=== PATIENT | female | born 1990 | race African-American/Black ===

== ENCOUNTER 2016-11-02 19:41 | Emergency (ER) | payer MEDICAID ==
[~2016-11-02] VITALS: Ht 152.4 cm; Wt 59.5 kg
[2016-11-02 19:55] VITALS: Ht 152.4 cm; Wt 59.5 kg
--- NOTE | 2016-11-02 20:02 | EN ---
Date/Time of Note Date/Time of Note DATE: 11/02/16 TIME: 20:02 ER Progress Note 26-year-old female presents to emergency department for complaints of cough and wheezing for the last 2 days, using inhaler, continues to have the wheezing. Patient has been having dry cough, does not cough up any phlegm or blood. Patient has episodes of wheezing. Patient denies any fever or chills. Patient has been using her inhalers have further symptoms. Patient was evaluated, noted left upper lung lobe wheezing, active wheezing at this time. Patient is breathing treatment, and a further evaluation. Patient will be waiting for ER2 bed for breathing treatment. BRIEN MALLOY NP Nov 02, 2016 20:02
[2016-11-02] MEDS ORDERED: ALBUTEROL/IPRATROPIUM (NEB) 3 ML AMP HHN STA (20:26)
[2016-11-02] MEDS ORDERED: DEXAMETHASONE 10 MG/ML 1 ML INJ IM ONE (20:30)
--- NOTE | 2016-11-02 20:32 | ERD ---
ER Documentation Chief Complaint Date/Time DATE: 11/02/16 TIME: 20:28 Chief Complaint HPI This patient is a 26-year-old female with a history of asthma presenting to the emergency department for cough and wheezing which is been ongoing intermittently for the past 3 days. The patient states that today she has used her albuterol inhaler multiple times with no relief of her wheezing. Additionally the patient reports congestion which is been ongoing now for the past 2 days. The patient denies any urinary symptoms, fevers, chills, nausea, vomiting, diarrhea, chest pain, or other symptoms at this time. There are no other alleviating or exacerbating factors at this time. ROS All systems reviewed and are negative except as per history of present illness. Medications Home Meds Active Scripts Fluticasone Propionate (Flonase Allergy Relief) 9.9 Ml [place].susp, 1 SPRAY NASAL DAILY, #1 BOTTLE TO EACH NOSTRIL Prov:JOSS STAFFORD PA-C 11/02/16 Prednisone* (Prednisone*) 20 Mg Tab, 40 MG PO DAILY for 5 Days, #10 TAB Prov:JOSS STAFFORD PA-C 11/02/16 Beclomethasone Dip* (Qvar 40*) 7.3 Gm Inha, 1 PUFF INH BID, #1 INHALER Prov:JOSS STAFFORD PA-C 11/02/16 Allergies Allergies: Coded Allergies: No Known Allergy (Unverified , 11/02/16) PMhx/Soc Medical and Surgical Hx: pt denies Surgical Hx Hx Respiratory Disorders: Yes (ASTHMA) Hx Alcohol Use: No Hx Substance Use: No Hx Tobacco Use: Yes (MARIJUANA) Smoking Status: Current every day smoker FmHx Noncontributory for chief complaint Physical Exam Vitals Vital Signs Date Time Temp Pulse Resp B/P Pulse Ox O2 Delivery O2 Flow Rate FiO2 11/02/16 21:30 98.0 94 20 125/73 98 Room Air 11/02/16 20:41 93 18 97 21 11/02/16 19:55 98.6 89 22 117/78 99 Physical Exam INITIAL VITAL SIGNS: Reviewed by me GENERAL: The patient is well developed and appropriate for usual state of health in no apparent distress HEENT: Pupils equal, round, and reactive to light. EOMI. There is no scleral icterus. NECK: C-spine is soft and supple, there is no meningismus. There is no cervical lymphadenopathy. LUNGS: There is inspiratory and expiratory wheezing to all lung araujo. There are rhonchi noted in all lung araujo. There is shallow inspiratory effort. HEART: Regular rate and rhythm, no murmurs, clicks, rubs or gallops. ABDOMEN: Soft, non-tender, non-distended. There are bowel sounds in all four quadrants. No rebound or guarding. EXTREMITIES: There is no peripheral cyanosis or edema. No focal swelling or erythema. NEUROLOGICAL: The patient moves all four extremities with 5/5 strength. Normal gait. Alert and oriented SKIN: There is no apparent rash or petechiae. HEME/LYMPHATIC: There is no evidence of excessive bruising or lymphedema. PSYCHIATRIC: The patient does not appear anxious or depressed. Results 24 hrs Current Medications Medications (Trade) Dose Ordered Sig/Erickson Route PRN Reason Start Time Stop Time Status Last Admin Dose Admin Dexamethasone (Decadron) 10 mg ONCE ONCE IM 11/02/16 20:30 11/02/16 20:31 DC 11/02/16 20:49 Albuterol/ Ipratropium (Duoneb) 3 ml ONCE STAT HHN 11/02/16 20:26 11/02/16 20:29 DC 11/02/16 20:37 Procedures/MDM Chest X-ray 1V, Interpreted by radiologist. 1. No radiographic evidence for acute cardiopulmonary disease. 2. Mild hyperinflation and correlate with reactive airway disease Medications: The patient was given a nebulizer treatment with albuterol and Atrovent. The patient was given injection of 10 mg of Decadron. MDM: 26-year-old female presenting to the emergency department for asthma exacerbation for the past 2 days. The patient has been using her albuterol inhaler multiple times throughout the day today. On physical examination there are no signs of retractions or respiratory distress however there are inspiratory wheezes to all lung araujo. I have ordered a chest x-ray looking for any signs of hyperinflation, bronchitis, pneumonia or other cardiopulmonary abnormalities. I have ordered a medication nebulizer with albuterol and Atrovent as well as an injection of Decadron for relief of the patient's symptoms. After treatment in the department the patient was feeling improved. Review of the chest x-ray shows no signs of bronchitis or pneumonia however there was mild hyperinflation. At this time, the patient's primary diagnosis is asthma exacerbation and secondary diagnosis is upper respiratory infection. There are no clinical or radiological signs of pulmonary embolism, bronchitis, pneumonia or other acute emergencies. The patient is stable for discharge and treatment as an outpatient. She will be given prescriptions for symptom relief. She is in agreement with the plan. All questions and concerns of been addressed at this time. She should follow-up with her primary care doctor within 2-5 days. Departure Diagnosis: Primary Impression: Asthma exacerbation Additional Impression: Upper respiratory infection Condition: Stable Patient Instructions: Asthma Additional Instructions: Follow-up with your primary care physician within 1 week. Return to the emergency department immediately should you have any new or worsening symptoms, uncontrolled fevers, or other unexplained symptoms. Take all medications as directed. JOSS STAFFORD PA-C Nov 02, 2016 20:32
--- NOTE | 2016-11-02 20:52 | RADRPT ---
PROCEDURE: XR Chest. CLINICAL INDICATION: Wheezing TECHNIQUE: AP Portable chest. COMPARISON: None available FINDINGS: The soft tissues and bones are normal. No focal infiltrates, masses, or effusions are noted. Mild hyperinflation is present and correlate with reactive airway disease. The mediastinum and heart are normal. No pneumothorax is present. IMPRESSION: 1. No radiographic evidence for acute cardiopulmonary disease. 2. Mild hyperinflation and correlate with reactive airway disease RPTAT: HDC .Florida Doss MD, Date Time Electronically viewed and signed by .Florida Doss MD, MD on 11/02/2016 20:52 .C/
[2016-11-02] MEDS ORDERED: PRED20TA PO (21:13)
[2016-11-02] MEDS ORDERED: BECL8.7A INH (21:13)
[2016-11-02] MEDS ORDERED: FLUT9.9S NASAL (21:14)
[2016-11-02 21:30] VITALS: BP 125/73; PULSE 94; RESP 20; TEMP 98
== END 2016-11-02 21:30 | disposition home or self-care (01) ==
LOC: FTE 19:41
DX: J45.901 Unspecified asthma with (acute) exacerbation (principal); J06.9 Acute upper respiratory infection, unspecified; F17.210 Nicotine dependence, cigarettes, uncomplicated
CPT/HCPCS: 71010; 94664; 96372; J1100; Z7502; Z7610

== ENCOUNTER 2016-11-08 13:29 | Emergency (ER) | payer MEDICAID ==
[~2016-11-08] VITALS: Wt 60.0 kg
[~2016-11-08 13:29] MED LIST: BECL8.7A INH; FLUT9.9S NASAL; PRED20TA PO
--- NOTE | 2016-11-08 14:57 | EN ---
Date/Time of Note Date/Time of Note DATE: 11/08/16 TIME: 14:57 ER Progress Note Patient was evaluated RME on examination patient was wheezing and would like a breathing treatment, patient will be sent to ER to for breathing treatment and further management ARLEN RIVAS PA-C Nov 08, 2016 14:57
[2016-11-08] MEDS ORDERED: IPRATROPIUM (NEB) 0.5 MG/2.5 ML AMP NEB STA (15:27)
[2016-11-08] MEDS ORDERED: ALBUTEROL 0.5% (NEB) 2.5 MG/0.5 ML AMP NEB STA (15:27)
[2016-11-08] MEDS ORDERED: IPRA3AMP INHALATION (15:57)
[2016-11-08] MEDS ORDERED: [UNRECOGNIZED DRUG - CODE] MC (15:57)
--- NOTE | 2016-11-08 17:10 | ERD ---
ER Documentation Chief Complaint Date/Time DATE: 11/08/16 TIME: 17:08 Chief Complaint COUGH AND CONGESTION FOR THE PAST FEW MONTHS. NO DISTRESS. HPI This is a 26-year-old female presenting to the emergency department complaining of cough, congestion and wheezing for the past few months. Patient states that she has been seen here last week and got a breathing treatment and given 5 days of prednisone. Patient states that she still has some wheezing. She denies any chest pain however she does states that she feels her breathing a little tight. She denies any fevers. Patient states that she is unable to get the inhaler due to ROS All systems reviewed and are negative except as per history of present illness. Medications Home Meds Active Scripts Ipratropium-Albuterol (Ipratropium-Albuterol) 0.5-3 Mg/3 Ml [place].neb, 3 ML INHALATION Q6, #30 VIAL Prov:ARLEN RIVAS PA-C 11/08/16 Nebulizer (ERAPID NEBULIZER) 1 Each Each, 1 EACH MC, #1 Prov:ARLEN RIVAS PA-C 11/08/16 Fluticasone Propionate (Flonase Allergy Relief) 9.9 Ml [place].susp, 1 SPRAY NASAL DAILY, #1 BOTTLE TO EACH NOSTRIL Prov:JOSS STAFFORD PA-C 11/02/16 Prednisone* (Prednisone*) 20 Mg Tab, 40 MG PO DAILY for 5 Days, #10 TAB Prov:JOSS STAFFORD PA-C 11/02/16 Beclomethasone Dip* (Qvar 40*) 7.3 Gm Inha, 1 PUFF INH BID, #1 INHALER Prov:JOSS STAFFORD PA-C 11/02/16 Allergies Allergies: Coded Allergies: No Known Allergy (Unverified , 11/02/16) PMhx/Soc Hx Respiratory Disorders: Yes (ASTHMA) Hx Cardiac Disorders: No Hx Psychiatric Problems: No Hx Miscellaneous Medical Probl: No Hx Alcohol Use: No Hx Substance Use: No Hx Tobacco Use: Yes (MARIJUANA) Smoking Status: Current every day smoker Physical Exam Vitals Vital Signs Date Time Temp Pulse Resp B/P Pulse Ox O2 Delivery O2 Flow Rate FiO2 11/08/16 15:42 88 22 99 21 11/08/16 13:37 98.1 82 22 140/82 99 Physical Exam GENERAL: WD/WN, in no apparent distress, non-toxic appearing HENT: NC/AT, bilateral TM has good cone of light EYES: Conjunctiva normal NECK: Supple PULM: Inspiratory and expiratory wheezing. No rales, crackles, or rhonchi heard. No tripod position, normal labored breathing, no stridor, no evidence of using accessory muscles. CV: Good capillary refill, good S1 and S2, no murmurs appreciated GI: Non-distended, no guarding BACK: No masses. EXT: No clubbing, cyanosis, or edema. NEURO: Moves on all fours SKIN: intact, no cyanosis. PSYCH: Normal mood Results 24 hrs Current Medications Medications (Trade) Dose Ordered Sig/Ercikson Route PRN Reason Start Time Stop Time Status Last Admin Dose Admin Albuterol (Proventil 0.5% (Neb)) 10 mg ONCE STAT NEB 11/08/16 15:27 11/08/16 15:28 DC 11/08/16 15:41 Ipratropium [place] (Atrovent 0.02% (Neb)) 1.5 mg ONCE STAT NEB 11/08/16 15:27 11/08/16 15:28 DC 11/08/16 15:41 Procedures/MDM This is a 26-year-old female presented to the emergency room with symptoms most consistent with a viral upper respiratory infection with reactive airway disease. Patient has been seen here last week and a chest x-ray done, chest x- ray was unremarkable for any infiltrates or pneumothorax. Patient was given a prescription for an inhaler however patient states that she was unable to get the inhaler yet. On examination patient was breathing well on room air with a pulse ox of 99%. She did have evidence of wheezing on examination. RT was consulted and patient was given 10 mg albuterol and 1 mg of Atrovent, I have reassessed patient and she significantly improved. Patient is suitable to follow-up with her primary care physician for further evaluation management. I will low suspicion for pneumonia, status asthmaticus, pneumonia, inhaled foreign body, or other life threatening pulmonary emergencies due to physical examination. Hemodynamically stable. Patient was saturating well on room air and shortness of breath improved. Prescription for nebulizer, Atrovent and albuterol was given , discussed to have a close follow-up with a primary care physician, discussed to return to the ED if not improving as expected or if condition worsens. Patient understood and agreed with this plan. Departure Diagnosis: Primary Impression: Reactive airway disease Asthma severity: unspecified severity Asthma complication type: uncomplicated Qualified Code: J45.909 - Reactive airway disease, unspecified asthma severity, uncomplicated Additional Impression: Viral URI Condition: Stable Patient Instructions: Asthma Medications, Uri, Viral W/ Wheezing (Adult) Referrals: NO PRIMARY,CARE PHYSICIAN (PCP) COMMUNITY CLINICS YOU HAVE RECEIVED A MEDICAL SCREENING EXAM AND THE RESULTS INDICATE THAT YOU DO NOT HAVE A CONDITION THAT REQUIRES URGENT TREATMENT IN THE EMERGENCY DEPARTMENT. FURTHER EVALUATION AND TREATMENT OF YOUR CONDITION CAN WAIT UNTIL YOU ARE SEEN IN YOUR DOCTORS OFFICE WITHIN THE NEXT 1-2 DAYS. IT IS YOUR RESPONSIBILITY TO MAKE AN APPOINTMENT FOR FOLOW-UP CARE. IF YOU HAVE A PRIMARY DOCTOR --you should call your primary doctor and schedule an appointment IF YOU DO NOT HAVE A PRIMARY DOCTOR YOU CAN CALL OUR PHYSICIAN REFERRAL HOTLINE AT IF YOU CAN NOT AFFORD TO SEE A PHYSICIAN YOU CAN CHOSE FROM THE FOLLOWING [facility] [address] [facility]. [facility] [address] [facility] [facility] [address] [facility] [facility] [address] [facility]. [facility] [address] [facility] [facility]. [address] Additional Instructions: FOLLOW UP WITH YOUR PRIMARY CARE PHYSICIAN TOMORROW.Return to this facility if you are not improving as expected. Take all medicines as directed. Return to this facility if you are not improving as expected. ARLEN RIVAS PA-C Nov 08, 2016 17:10
[2016-11-08] MEDS ORDERED: ONDA4TAB14 PO (17:14)
[2016-11-08 17:18] VITALS: BP 132/78; PULSE 87; RESP 18; TEMP 98.1
== END 2016-11-08 17:18 | disposition home or self-care (01) ==
LOC: FTE 13:29
DX: J45.901 Unspecified asthma with (acute) exacerbation (principal); J06.9 Acute upper respiratory infection, unspecified; F17.210 Nicotine dependence, cigarettes, uncomplicated
CPT/HCPCS: 94644; Z7610